=== PATIENT | female | born 1970 | race American Indian/Alaskan Native ===

== ENCOUNTER 2019-05-07 11:35 | Emergency (ER) | payer OTHER ==
--- NOTE | 2019-05-07 12:03 | Event Note ---
ED Screening Note Date of service: 05/07/19 Time: 12:00 ED Screening Note: This is a 49 y.o. F. that presents to the ER with right wrist pain. Patient was at work and pans from a shelf overhead fell onto right wrist 1 1/2 hours ago. Denies LOC or hitting her head This initial assessment/diagnostic orders/clinical plan/treatment(s) is/are subject to change based on patients health status, clinical progression and re- assessment by fellow clinical providers in the ED. Further treatment and workup at subsequent clinical providers discretion. Patient/guardian urged not to elope from the ED as their condition may be serious if not clinically assessed and managed. Initial orders include: XR right wrist
--- NOTE | 2019-05-07 12:12 | Emergency Department Report ---
Upper Extremity - HPI Chief Complaint: Extremity Injury, Upper Stated Complaint: W/C R WRIST PAIN Time Seen by Provider: 05/07/19 12:00 Occurred When: Today Mechanism: Hit with Object Symptoms: Yes Pain with Movement, No Deformity, No Numbness, No Weakness, No Laceration or Abrasion Other History: Patient is a 49-year-old female who presents to the emergency room with complaints of right wrist pain that began this morning while at work. 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 she denies any breaking of the skin. she denies any numbness or weakness. the patient denies any prior injury of her wrist. she denies any PMHx or allergies to meds. ED Review of Systems ROS: Stated complaint: W/C R WRIST PAIN Other details as noted in HPI Comment: All other systems reviewed and negative ED Past Medical Hx - Past Medical History Additional medical history: denies - Surgical History Additional Surgical History: , hysterectomy - Social History Smoking Status: Never Smoker Substance Use Type: None - Medications Home Medications: Home Medications Medication Instructions Recorded Confirmed Last Taken Type Amoxicillin [Trimox CAP] 500 mg PO Q8H #30 capsule 03/21/14 Unknown Rx Promethazine /Codeine 5 ml PO Q6H PRN #120 ml 03/21/14 Unknown Rx [Phenergan/Codeine 6.25-10 mg/5 ml] methylPREDNISolone [Medrol Dose 4 mg PO DAILY #1 packet 03/21/14 Unknown Rx [facility]] Naproxen [Naprosyn TAB] 500 mg PO BID PRN #20 tablet 05/07/19 Unknown Rx Upper Extremity Exam - Exam General: Vital signs noted. No distress. Alert and acting appropriately. Arm Exam: No Arm/Humerus Tenderness, No Arm Deformity Elbow: Yes Normal Range of Motion in Elbow, No Elbow Tenderness, No Elbow Deformity Forearm: No Forearm Tenderness, No Forearm Deformity, No Pain with Pronation, No Pain with Supination Wrist: Yes Wrist Tenderness (right, posterior, lateral wrist ), Yes Normal ROM in Wrist, No Wrist Deformity, No Snuffbox Tenderness, No Pain with Axial Thumb Compression Hand: Yes Normal ROM in Digit(s), No Hand Tenderness, No Hand Deformity, No Digit Tenderness, No Digit(s) Deformity, No Tendon Dysfunction CMS Exam: Yes Normal Distal Pulses, Yes Normal Capillary Refill, Yes Normal Distal Sensation, No Broken Skin ED Course Vital Signs 05/07/19 12:00 Temperature 98.3 F Pulse Rate 65 Respiratory 18 Rate Blood Pressure 131/86 O2 Sat by Pulse 100 Oximetry ED Medical Decision Making - Radiology Data Radiology results: report reviewed RIGHT WRIST 4 VIEW(S) INDICATION / CLINICAL INFORMATION: RT WRIST PAIN wrist pain after falling at work. COMPARISON: None available. FINDINGS: BONES / JOINT(S): No acute fracture or subluxation. No significant arthritis. SOFT TISSUES: Mild soft tissue swelling over the ulnar and dorsal aspects of the wrist. ADDITIONAL FINDINGS: None. Signer Name: Mikal Hernandez MD Signed: 05/07/2019 1:35 PM Workstation Name: [id number] Transcribed By: DT Dictated By: Kar Hernandez MD Electronically Authenticated By: Kar Hernandez MD Signed Date/Time: 05/07/19 1679 - Medical Decision Making Patient is a 49-year-old female who presents to the emergency room with complaints of right wrist pain that began this morning while at work. 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 she denies any breaking of the skin. she denies any numbness or weakness. the patient denies any prior injury of her wrist. she denies any PMHx or allergies to meds. on exam: right, posterior, lateral wrist TTP, no snuffbox tenderness, no deformity, neurovascularly intact. XR right wrist shows Mild soft tissue swelling over the ulnar and dorsal aspects of the wrist. pt given prescription for naproxen. advised to please take medication as prescribed as needed. may use ice, rest, elevation. follow up with a primary care doctor in the next 2-3 days. return to the emergency room for any new or worsening symptoms. Critical care attestation.: If time is entered above; I have spent that time in minutes in the direct care of this critically ill patient, excluding procedure time. ED Disposition Clinical Impression: Right wrist pain Disposition: DC-01 TO HOME OR SELFCARE Is pt being admited?: No Does the pt Need Aspirin: No Condition: Stable Instructions: Wrist Injury (ED) Additional Instructions: please take medication as prescribed as needed. may use ice, rest, elevation. follow up with a primary care doctor in the next 2-3 days. return to the emergency room for any new or worsening symptoms. Prescriptions: Naproxen [Naprosyn TAB] 500 mg PO BID PRN #20 tablet PRN Reason: pain Referrals: ÁLVARO SINGH MD [Primary Care Provider] - 2-3 Days Forms: Work/School Release Form(ED) Time of Disposition: 13:55 Print Language: MALTESE
--- NOTE | 2019-05-07 13:40 | XRay Report ---
RIGHT WRIST 4 VIEW(S) INDICATION / CLINICAL INFORMATION: RT WRIST PAIN wrist pain after falling at work. COMPARISON: None available. FINDINGS: BONES / JOINT(S): No acute fracture or subluxation. No significant arthritis. SOFT TISSUES: Mild soft tissue swelling over the ulnar and dorsal aspects of the wrist. ADDITIONAL FINDINGS: None. Signer Name: Mikal Hernandez MD Signed: 05/07/2019 1:35 PM Workstation Name: [id number]
[2019-05-07 14:22] VITALS: BP 143/98
== END 2019-05-07 14:26 | disposition home or self-care (01) ==
LOC: ED 11:35
DX: M25.531 Pain in right wrist (principal); Z90.710 Acquired absence of both cervix and uterus; Z79.899 Other long term (current) drug therapy

== ENCOUNTER 2019-08-05 07:00 | Emergency (ER) | payer OTHER ==
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
[2019-08-05] MEDS ORDERED: DILAUDID IV ONE (08:18)
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
[2019-08-05 10:28] VITALS: BP 147/55
== END 2019-08-05 11:33 | disposition home or self-care (01) ==
LOC: ED 07:00
DX: S63.91XA Sprain of unspecified part of right wrist and hand, initial encounter (principal); S23.9XXA Sprain of unspecified parts of thorax, initial encounter; S33.5XXA Sprain of ligaments of lumbar spine, initial encounter; S13.9XXA Sprain of joints and ligaments of unspecified parts of neck, initial encounter; Z90.710 Acquired absence of both cervix and uterus; Z79.899 Other long term (current) drug therapy; V49.49XA Driver injured in collision with other motor vehicles in traffic accident, initial encounter; Y93.89 Activity, other specified; Y92.410 Unspecified street and highway as the place of occurrence of the external cause; Y99.8 Other external cause status
CPT/HCPCS: 72125; 72128; 72131; 73130; 96374; 99284; J1170

== ENCOUNTER 2020-08-21 06:28 | Emergency (ER) | payer SELFPAY ==
[2020-08-21 06:52] VITALS: BP 128/85
--- NOTE | 2020-08-21 07:23 | Emergency Department Report ---
ED Extremity Problem HPI - General Chief complaint: Pain General Stated complaint: PAIN IN BOTH LEGS Time Seen by Provider: 08/21/20 07:06 Source: patient Mode of arrival: Ambulatory Limitations: No Limitations - History of Present Illness Initial comments: 50 Year old female presented to ED complain of bilateral leg pain. Patient states that this started yesterday after working out. Patient admits that she worked out yesterday for 1.5 hours. She states that the last time she worked out was 1 month ago. Patient states "I went hard "during her workout. Patient reports pain to her buttocks, thigh area, and right lower leg area. She states pain is worse when she tries to move. She reports mild relief when she is not moving. She has not taken anything for pain because she states that she do not like taking medications. Patient states that she try to go to work this morning and was unable to due to the pain. She reports no apparent swelling, bruising, chest pain, shortness of breath or any other symptoms at this time. MD Complaint: extremity pain, other (Bilateral leg pain) -: Gradual (Yesterday after exercising) Location: lower extremity, bilateral lower extremity - Related Data Previous Rx's Medication Instructions Recorded Last Taken Type Amoxicillin [Trimox CAP] 500 mg PO Q8H #30 capsule 03/21/14 Unknown Rx Promethazine /Codeine 5 ml PO Q6H PRN #120 ml 03/21/14 Unknown Rx [Phenergan/Codeine 6.25-10 mg/5 ml] methylPREDNISolone [Medrol Dose 4 mg PO DAILY #1 packet 03/21/14 Unknown Rx [facility]] Acetaminophen/Codeine [Tylenol 1 tab PO Q6H PRN #12 tab 08/05/19 Unknown Rx /Codeine # 3 tab] Metaxalone [Skelaxin] 800 mg PO TID PRN #15 tablet 08/05/19 Unknown Rx Naproxen [Naprosyn TAB] 500 mg PO BID PRN #20 tablet 08/05/19 Unknown Rx Allergies Allergy/AdvReac Type Severity Reaction Status Date / Time No Known Allergies Allergy Unverified 03/21/14 09:56 ED Review of Systems ROS: Stated complaint: PAIN IN BOTH LEGS Other details as noted in HPI Comment: All other systems reviewed and negative Constitutional: denies: chills, fever ENT: denies: ear pain, throat pain Respiratory: denies: cough, shortness of breath, wheezing Cardiovascular: denies: chest pain, palpitations Musculoskeletal: joint swelling, arthralgia, myalgia. denies: back pain Neurological: denies: headache, weakness, paresthesias Psychiatric: denies: anxiety, depression Hematological/Lymphatic: denies: easy bleeding, easy bruising ED Past Medical Hx - Past Medical History Previous Medical History?: No Additional medical history: denies - Surgical History Past Surgical History?: Yes Additional Surgical History: , hysterectomy - Social History Smoking Status: Never Smoker Substance Use Type: None - Medications Home Medications: Home Medications Medication Instructions Recorded Confirmed Last Taken Type Amoxicillin [Trimox CAP] 500 mg PO Q8H #30 capsule 03/21/14 Unknown Rx Promethazine /Codeine 5 ml PO Q6H PRN #120 ml 03/21/14 Unknown Rx [Phenergan/Codeine 6.25-10 mg/5 ml] methylPREDNISolone [Medrol Dose 4 mg PO DAILY #1 packet 03/21/14 Unknown Rx [facility]] Acetaminophen/Codeine [Tylenol 1 tab PO Q6H PRN #12 tab 08/05/19 Unknown Rx /Codeine # 3 tab] Metaxalone [Skelaxin] 800 mg PO TID PRN #15 tablet 08/05/19 Unknown Rx Naproxen [Naprosyn TAB] 500 mg PO BID PRN #20 tablet 08/05/19 Unknown Rx ED Physical Exam - General Limitations: No Limitations General appearance: alert, in no apparent distress - Head Head exam: Present: atraumatic, normocephalic - Eye Eye exam: Present: normal appearance - Respiratory Respiratory exam: Present: respiratory distress - Cardiovascular Cardiovascular Exam: Present: regular rate - Extremities Exam Extremities exam: Present: full ROM, tenderness (Patient has diffuse muscle tenderness to her lower buttocks area, thigh area bilaterally, and she has tenderness to palpation to the lateral aspect of her right lower leg. There is some mild pain with range of motion of her hips bilaterally, knees, and ankles but otherwise range of motion is normal. There is no apparent swelling, bruising or erythema to her lower legs. Dorsalis pedis pulses and posterior tibialis pulses normal bilaterally.), other (varicose veins noted to bilateral LE) ED Course Vital Signs 08/21/20 06:41 Temperature 97.7 F Pulse Rate 77 Respiratory 16 Rate Blood Pressure 128/85 O2 Sat by Pulse 97 Oximetry ED Medical Decision Making - Medical Decision Making 0733 -- Pt presents to ED c/o bilateral LE pain after exercising for 1.5 hrs yesterday. Pt is well appearing, not toxic and appears hydrated and in no significant distress. Patient is awake alert and oriented x3 and neurologically intact. Physical exam does not suggest any signs of DVT, cellulitis, acute arterial occlusion, cord compression syndrome, or any other significant abnorma lities requiring work-up, admission or emergent consult today at this time. Discussed suspected diagnosis and treatment plan with patient. Patient is stable at time of discharge. She understands to return to the ER if anything changes or worsens. Critical care attestation.: If time is entered above; I have spent that time in minutes in the direct care of this critically ill patient, excluding procedure time. ED Disposition Clinical Impression: Leg pain, bilateral, Muscle strain of lower extremity Disposition: - TO HOME OR SELFCARE Is pt being admited?: No Does the pt Need Aspirin: No Condition: Stable Instructions: Muscle Strain, [id number] Additional Instructions: I recommend that you take Tylenol or ibuprofen to help with your pain. I recommend that you do not exercise for the next 2 to 3 days. I recommend that she exercise for no more than an hour per day. When you do exercise try to go according to your own pace. Drink lots of water before during and after exercise. Follow-up with your primary care doctor. Return to the ER if worse. Referrals: JOSÉ LUTZ MD [Staff Physician] - 3-5 Days Forms: Work/School Release Form(ED) Time of Disposition: 07:25
[2020-08-21] MEDS ORDERED: KETOROLAC 10 MG TAB PO ONE (07:25)
== END 2020-08-21 08:00 | disposition home or self-care (01) ==
LOC: ED 06:28
DX: S86.911A Strain of unspecified muscle(s) and tendon(s) at lower leg level, right leg, initial encounter (principal); S86.912A Strain of unspecified muscle(s) and tendon(s) at lower leg level, left leg, initial encounter; Z79.899 Other long term (current) drug therapy; Z90.710 Acquired absence of both cervix and uterus; Z98.890 Other specified postprocedural states; X58.XXXA Exposure to other specified factors, initial encounter; Y93.89 Activity, other specified; Y92.89 Other specified places as the place of occurrence of the external cause; Y99.8 Other external cause status
CPT/HCPCS: 99282

== ENCOUNTER 2021-01-18 07:15 | Emergency (ER) | payer BC ==
[2021-01-18 07:41] VITALS: BP 161/87
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
--- NOTE | 2021-01-18 09:02 | Cat Scan Report ---
CT head without contrast INDICATION : head injury 2 days ago. TECHNIQUE: Axial imaging performed from the skull apex through the skull base without the use of con trast. All CT scans at this location are performed using CT dose reduction for ALARA by means of aut omated exposure control. COMPARISON: None FINDINGS: Parenchyma: No acute intracranial hemorrhage or parenchymal abnormality. Ventricles: Ventricles are normal in size and appear symmetric. Soft tissues: Soft tissues including the orbits appear normal. Bones: No acute osseous abnormality. Sinuses: Sinuses and mastoid air cells are clear. IMPRESSION: No acute abnormality. Signer Name: Bihsop Vaughan MD Signed: 01/18/2021 8:57 AM Workstation Name: [id number]
== END 2021-01-18 09:27 | disposition home or self-care (01) ==
LOC: ED 07:15
DX: S06.0X9A Concussion with loss of consciousness of unspecified duration, initial encounter (principal); Z90.710 Acquired absence of both cervix and uterus; Z79.899 Other long term (current) drug therapy; X58.XXXA Exposure to other specified factors, initial encounter; Y93.89 Activity, other specified; Y92.89 Other specified places as the place of occurrence of the external cause; Y99.8 Other external cause status
CPT/HCPCS: 70450; 99283

== ENCOUNTER 2021-02-09 05:49 | Emergency (ER) | payer BC ==
[2021-02-09] MEDS ORDERED: IBUPROFEN 800 MG TAB PO ONE (06:08)
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
[2021-02-09 07:26] VITALS: BP 119/82
== END 2021-02-09 07:15 | disposition home or self-care (01) ==
LOC: ED 05:49
DX: T21.01XA Burn of unspecified degree of chest wall, initial encounter (principal); T22.032A Burn of unspecified degree of left upper arm, initial encounter; Z90.710 Acquired absence of both cervix and uterus; Z79.899 Other long term (current) drug therapy; X19.XXXA Contact with other heat and hot substances, initial encounter; Y93.89 Activity, other specified; Y92.89 Other specified places as the place of occurrence of the external cause; Y99.8 Other external cause status
CPT/HCPCS: 99282

== ENCOUNTER 2021-04-05 07:04 | Emergency (ER) | payer BC ==
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
[2021-04-05] MEDS ORDERED: KETOROLAC 30 MG/1 ML INJ IM ONE (11:24)
[2021-04-05 11:50] VITALS: BP 145/96
== END 2021-04-05 11:51 | disposition home or self-care (01) ==
LOC: ED 07:04
DX: M54.2 Cervicalgia (principal); R07.89 Other chest pain; M54.6 Pain in thoracic spine; R51.9 Headache, unspecified; I10 Essential (primary) hypertension; Z90.710 Acquired absence of both cervix and uterus; Z98.890 Other specified postprocedural states; Z79.1 Long term (current) use of non-steroidal anti-inflammatories (NSAID); Z79.2 Long term (current) use of antibiotics; Z79.899 Other long term (current) drug therapy
CPT/HCPCS: 70450; 71046; 72072; 72100; 72125; J1885